=== PATIENT | female | born 1985 | race Caucasian/White ===

== ENCOUNTER 2016-08-02 12:33 | Outpatient (CLI) | payer BC | END 2016-08-02 15:26 | disposition home or self-care (01) | LOC: GENOP 12:33 | DX: O47.03 False labor before 37 completed weeks of gestation, third trimester (principal); Z3A.35 35 weeks gestation of pregnancy | CPT/HCPCS: 81001; 82962; G0463 ==

== ENCOUNTER 2016-08-21 05:17 | Inpatient (IN) | payer BC ==
[~2016-08-21] VITALS: Ht 157.5 cm; Wt 87.5 kg
[2016-08-21 05:56] LABS: HEMOGLOBIN 11.4 gm/dl (12.3-15.3); RED BLOOD COUNT 3.65 M/UL (4.00-5.10); WHITE BLOOD COUNT 7.7 K/UL (4.5-11.0)
[2016-08-21] MEDS ORDERED: THYROID 30 MG PO (10:35)
[2016-08-21] MEDS ORDERED: [UNRECOGNIZED DRUG - OTHER] PO (10:35)
[2016-08-22 03:09] LABS: HEMOGLOBIN 9.5 gm/dl (12.3-15.3)
[2016-08-23] MEDS ORDERED: COLACE 100MG C100 MG PO (09:40)
== END 2016-08-23 12:47 | disposition home or self-care (01) | DRG 774 ==
LOC: OB 05:17
PROVIDERS: Obstetrics & Gynecology; ADMIT Obstetrics & Gynecology
PROC: 10E0XZZ Delivery of Products of Conception, External Approach (ICD-10-PCS; principal; 2016-08-21)
PROC: 0KQM0ZZ Repair Perineum Muscle, Open Approach (ICD-10-PCS; 2016-08-21)
PROC: 10907ZC Drainage of Amniotic Fluid, Therapeutic from Products of Conception, Via Natural or Artificial Opening (ICD-10-PCS; 2016-08-21)
DX: O24.12 Pre-existing type 2 diabetes mellitus, in childbirth (principal); O98.32 Other infections with a predominantly sexual mode of transmission complicating childbirth; O72.1 Other immediate postpartum hemorrhage; E11.9 Type 2 diabetes mellitus without complications; O70.9 Perineal laceration during delivery, unspecified; O99.284 Endocrine, nutritional and metabolic diseases complicating childbirth; E07.9 Disorder of thyroid, unspecified; A60.00 Herpesviral infection of urogenital system, unspecified; O99.344 Other mental disorders complicating childbirth; F32.9 Major depressive disorder, single episode, unspecified; F41.9 Anxiety disorder, unspecified; F90.9 Attention-deficit hyperactivity disorder, unspecified type; E28.2 Polycystic ovarian syndrome; K21.9 Gastro-esophageal reflux disease without esophagitis; Z82.49 Family history of ischemic heart disease and other diseases of the circulatory system; O99.214 Obesity complicating childbirth; O70.0 First degree perineal laceration during delivery; O69.81X0 Labor and delivery complicated by cord around neck, without compression, not applicable or unspecified; Z3A.38 38 weeks gestation of pregnancy; Z37.0 Single live birth; Z84.89 Family history of other specified conditions; Z83.3 Family history of diabetes mellitus; Z83.49 Family history of other endocrine, nutritional and metabolic diseases; Z80.9 Family history of malignant neoplasm, unspecified
CPT/HCPCS: 36415; 51702; 81001; 82800; 82962; 85014; 85018; 85025; 90715; J2210; J2590; J2795; J3010; J7030

== ENCOUNTER → 2016-09-11 | Outpatient (CLI) | payer BC ==
[~2016-09-11] MED LIST: COLACE 100MG C100 MG PO; THYROID 30 MG PO; [UNRECOGNIZED DRUG - OTHER] PO
[2016-09-11 17:04] LABS: HEMOGLOBIN 14.1 gm/dl (12.3-15.3); RED BLOOD COUNT 4.61 M/UL (4.00-5.10); WHITE BLOOD COUNT 4.9 K/UL (4.5-11.0)
[2016-09-11 17:26] LABS: BUN/CREATININE RATIO 14 (0-10)
== END ==
LOC: LAB 16:41
PROVIDERS: Family Medicine
DX: R19.7 Diarrhea, unspecified (principal)
CPT/HCPCS: 80053; 85027

== ENCOUNTER → 2016-11-04 | Outpatient (CLI) | payer BC | LOC: LAB 17:25 | DX: R73.09 Other abnormal glucose (principal); E03.9 Hypothyroidism, unspecified | CPT/HCPCS: 36415; 83036; 84443 ==

== ENCOUNTER → 2017-02-09 | Outpatient (CLI) | payer BC ==
[2017-02-09 10:38] LABS: HEMOGLOBIN 11.5 gm/dl (12.3-15.3); RED BLOOD COUNT 4.09 M/UL (4.00-5.10); WHITE BLOOD COUNT 5.1 K/UL (4.5-11.0)
== END ==
LOC: LAB 10:02
PROVIDERS: Physician Assistant
DX: N93.9 Abnormal uterine and vaginal bleeding, unspecified (principal)
CPT/HCPCS: 36415; 82728; 84146; 84439; 84443; 84702; 85025

== ENCOUNTER 2021-06-20 17:48 | Emergency (ER) | payer OTHER ==
[2021-06-20 18:50] LABS: HEMOGLOBIN 11.7 gm/dl (12.3-15.3); RED BLOOD COUNT 4.52 M/UL (4.00-5.10); WHITE BLOOD COUNT 5.9 K/UL (4.5-11.0)
[2021-06-20 19:47] LABS: BUN/CREATININE RATIO 7 (0-10)
[2021-06-20] MEDS ORDERED: BENZONATATE200 MG PO (22:03)
== END 2021-06-20 22:22 | disposition home or self-care (01) ==
LOC: ER1 17:48
PROVIDERS: Physician Assistant Medical
DX: U07.1 COVID-19 (principal); Z88.8 Allergy status to other drugs, medicaments and biological substances
CPT/HCPCS: 71045; 80053; 82550; 82553; 83874; 84439; 84443; 84484; 85025; 93005; 99285

== ENCOUNTER → 2021-08-26 | Outpatient (CLI) | payer OTHER ==
[~2021-08-26] VITALS: Ht 157.5 cm; Wt 86.2 kg
[~2021-08-26] MED LIST changes: +BENZONATATE200 MG PO
== END ==
LOC: OPSV 09:45
DX: E61.1 Iron deficiency (principal)
CPT/HCPCS: 96365; J1756

== ENCOUNTER → 2021-09-02 | Outpatient (CLI) | payer OTHER ==
[~2021-09-02] VITALS: Ht 157.5 cm; Wt 86.2 kg
== END ==
LOC: OPSV 07:00
DX: E61.1 Iron deficiency (principal)
CPT/HCPCS: 96365; J1756

== ENCOUNTER → 2021-09-10 | Outpatient (CLI) | payer OTHER ==
[~2021-09-10] VITALS: Ht 157.5 cm; Wt 86.2 kg
== END ==
LOC: OPSV 07:00
DX: E61.1 Iron deficiency (principal)
CPT/HCPCS: 96365; J1756

== ENCOUNTER → 2021-09-13 | Outpatient (CLI) | payer OTHER ==
[~2021-09-13] VITALS: Ht 157.5 cm; Wt 86.2 kg
== END ==
LOC: OPSV 12:00
DX: E61.1 Iron deficiency (principal)
CPT/HCPCS: 96365; J1756